=== PATIENT | male | born 1980 | race Two or more races ===

== ENCOUNTER 2022-10-25 23:44 | Emergency (ER) | payer MEDICAID, OTHER ==
[~2022-10-25] VITALS: Ht 180.3 cm; Wt 110.7 kg
[2022-10-26 00:14] VITALS: BP 132/87; PULSE 96; RESP 18; TEMP 97.6
[2022-10-26] MEDS ORDERED: IBUPROFEN 800 MG TAB PO ONE (01:45)
[2022-10-26] MEDS ORDERED: IBU600T PO (02:01)
[2022-10-26 02:45] VITALS: O2SAT 97
== END 2022-10-26 02:45 | disposition home or self-care (01) ==
LOC: ER 23:50
DX: S62.662A Nondisplaced fracture of distal phalanx of right middle finger, initial encounter for closed fracture (principal); X58.XXXA Exposure to other specified factors, initial encounter; Y93.89 Activity, other specified; Y92.89 Other specified places as the place of occurrence of the external cause; Y99.8 Other external cause status
CPT/HCPCS: 29125; 73130